=== PATIENT | female | born 1995 | race Two or more races ===

== ENCOUNTER 2022-08-01 22:10 | Emergency (ER) | payer OTHER ==
[2022-08-01 22:15] VITALS: BP 113/70; PULSE 70; RESP 18; TEMP 98.7; BMI 20.5
[2022-08-01] MEDS ORDERED: DEXAMETHASONE SOD PHOSPHATE 10 MG/1 ML VIAL IM ONE (23:04)
[2022-08-01] MEDS ORDERED: IBUPROFEN 600 MG TABLET (FP) PO ONE ×2 (23:04→23:51)
[2022-08-01] MEDS ORDERED: DEXAMETHASONE SOD PHOSPHATE 10 MG/1 ML VIAL ONE (23:51)
== END 2022-08-02 00:48 | disposition home or self-care (01) ==
LOC: JER 22:10
PROC: 3E0233Z Introduction of Anti-inflammatory into Muscle, Percutaneous Approach (ICD-10-PCS; principal; 2022-08-01)
DX: M65.4 Radial styloid tenosynovitis [de Quervain] (principal)
CPT/HCPCS: 96372; 99284-25; J1100

== ENCOUNTER 2022-09-11 12:23 | Emergency (ER) | payer OTHER ==
[2022-09-11 12:33] VITALS: BP 106/54; PULSE 79; RESP 16; TEMP 98.6; BMI 21.2
[2022-09-11] MEDS ORDERED: KETOROLAC TROMETHAMINE 30 MG/1 ML VIAL IM ONE (14:02)
[2022-09-11] MEDS ORDERED: KETOROLAC TROMETHAMINE 30 MG/1 ML VIAL ONE (14:04)
== END 2022-09-11 15:51 | disposition home or self-care (01) ==
LOC: JERFT 12:23
PROC: 3E0233Z Introduction of Anti-inflammatory into Muscle, Percutaneous Approach (ICD-10-PCS; principal; 2022-09-11)
DX: M25.531 Pain in right wrist (principal); M25.532 Pain in left wrist; M65.841 Other synovitis and tenosynovitis, right hand; M65.842 Other synovitis and tenosynovitis, left hand
CPT/HCPCS: 73110-TC-LT-FY; 73110-TC-RT-FY; 73130-TC-LT-FY; 73130-TC-RT-FY; 99284-25

== ENCOUNTER 2022-10-10 20:44 | Emergency (ER) | payer OTHER ==
[2022-10-10 21:04] VITALS: RESP 18; TEMP 98.3; BMI 20.2
[2022-10-10 23:41] VITALS: BP 112/68; PULSE 60
== END 2022-10-11 00:29 | disposition home or self-care (01) ==
LOC: JER 20:44 → JERFT 20:44
DX: J02.9 Acute pharyngitis, unspecified (principal); B34.9 Viral infection, unspecified; R42 Dizziness and giddiness; R51.9 Headache, unspecified; Z20.822 Contact with and (suspected) exposure to COVID-19
CPT/HCPCS: 0241U-QW; 87651; 99283-25